=== PATIENT | male | born 1945 | race Two or more races ===

== ENCOUNTER 2017-12-01 18:29 | Emergency (ER) | payer OTHER ==
[~2017-12-01] VITALS: Ht 172.7 cm; Wt 90.7 kg
[2017-12-01] MEDS ORDERED: KETOROLAC TROMETH 60MG/2ML VIAL IM ONE (19:45)
[2017-12-01] MEDS ORDERED: HYDROcodone-ACET 5/325MG TAB PO ONE (19:45)
[2017-12-01] MEDS ORDERED: KETOROLAC TROMETH 30 MG/ML 1ML VIAL IV ONE (20:00)
[2017-12-01 23:47] VITALS: BP 142/79
== END 2017-12-01 23:57 | disposition home or self-care (01) ==
LOC: ER 18:40
DX: S52.591A Other fractures of lower end of right radius, initial encounter for closed fracture (principal); S20.211A Contusion of right front wall of thorax, initial encounter; I10 Essential (primary) hypertension; E78.5 Hyperlipidemia, unspecified; W01.198A Fall on same level from slipping, tripping and stumbling with subsequent striking against other object, initial encounter; Y93.89 Activity, other specified; Y99.8 Other external cause status; Y92.096 Garden or yard of other non-institutional residence as the place of occurrence of the external cause
CPT/HCPCS: 29125; 71111; 73090; 96374; 99284; J1885

== ENCOUNTER 2019-01-27 22:44 | Emergency (ER) | payer OTHER ==
[~2019-01-27] VITALS: Ht 172.7 cm; Wt 93.4 kg
[2019-01-28 00:42] LABS: Basophils # (auto) 0 uL; Basophils % (auto) 0.2 % (0.0-2.0); Eosinophils # (auto) 0.1 uL; Eosinophils % (auto) 0.6 % (0.0-7.0); Hematocrit 38.7 % (41.0-53.0); Hemoglobin 13.4 g/dL (13.5-17.5); Lymphocytes # (auto) 2.4 uL; Lymphocytes % (auto) 17.4 % (10.0-50.0); Mean Corpuscular Hemoglobin 29.9 pg (28.0-32.0); Mean Corpuscular Hgb Conc. 34.6 g/dL (32.0-36.0); Mean Corpuscular Volume 86.5 fL (80.0-100.0); Monocytes # (auto) 0.8 uL; Monocytes % (auto) 5.6 % (0.0-12.0); Neutrophils # (auto) 10.6 uL; Neutrophils % (auto) 76.2 % (37.0-80.0); Platelet Count (auto) 280 10^3/uL (140-450); Red Blood Cells 4.48 10^6/uL (4.5-5.90); Red Cell Distribution Width 13.9 % (11.8-14.3); White Blood Cell 13.9 10^3/uL (4.4-10.8)
[2019-01-28 00:59] LABS: Albumin 3.5 g/dL (3.4-5.0); BUN/Creatinine Ratio 24.6; Calcium 9.8 mg/dL (8.5-10.1); Potassium 4.2 mmol/L (3.5-5.1)
[2019-01-28] MEDS ORDERED: MAGNESIUM CITRATE SOLUTION 300 ML BTL PO ONE (01:00)
[2019-01-28 01:01] LABS: Bilirubin, Total 0.5 mg/dL (0.2-1.0); Total Protein 7.3 g/dL (6.4-8.2)
[2019-01-28 03:00] VITALS: BP 171/98
== END 2019-01-28 03:54 | disposition home or self-care (01) ==
LOC: ER 22:46
DX: K59.00 Constipation, unspecified (principal); D72.829 Elevated white blood cell count, unspecified; N28.9 Disorder of kidney and ureter, unspecified; N13.30 Unspecified hydronephrosis; Z85.46 Personal history of malignant neoplasm of prostate
CPT/HCPCS: 36415; 51702; 74176; 80053; 85025

== ENCOUNTER 2022-03-28 08:16 | Day surgery (SDC) | payer OTHER ==
[~2022-03-28] VITALS: Ht 177.8 cm; Wt 81.6 kg
[~2022-03-28 08:16] MED LIST: AMLO-496 PO; DOXY-286 PO; FENO54TA4 PO; FURO40TA4 PO; [UNRECOGNIZED DRUG - CODE] XX
[2022-03-28] MEDS ORDERED: ceFAZolin 1GM/50ML 100 ML IV ONE (09:00)
[2022-03-28] MEDS ORDERED: fentaNYL CITRATE 100 MCG/2 ML VL ONE (09:27)
[2022-03-28] MEDS ORDERED: DexAMETHasone SOD PHOS 10MG/1ML VIAL INJ ONE (09:27)
[2022-03-28] MEDS ORDERED: PROPOFOL 10 MG/ML 20 ML IV ONE (09:27)
[2022-03-28] MEDS ORDERED: SODIUM CHLORIDE LOCK 10 ML ONE (09:27)
[2022-03-28] MEDS ORDERED: MIDAZOLAM HCL 2MG/2ML 2ml VIAL (1mg/ml) ONE (09:27)
[2022-03-28] MEDS ORDERED: ONDANSETRON HCL 4 MG/2 ML VIAL ONE (09:27)
[2022-03-28] MEDS ORDERED: LIDOCAINE 1% (LOCAL ANESTH.) PF 5ml SDV ONE ×2 (10:10→10:20)
[2022-03-28] MEDS ORDERED: BUPIVACAINE 0.5% P/F INJ 10 ML VIAL ONE (10:11)
[2022-03-28] MEDS ORDERED: DexAMETHasone SOD PHOS 4 MG/1ML SDV INJ ONE (10:11)
[2022-03-28] MEDS ORDERED: HYDROmorphone HCL 2 MG/ML VL/or syr IV PRN ×2 (10:15)
[2022-03-28] MEDS ORDERED: METOCLOPRAMIDE HCL 5MG/ml INJ 2ml VIAL IV PRN (10:15)
[2022-03-28] MEDS ORDERED: MORPHINE SULFATE 4 MG/ML SYR/VIAL IV PRN (10:15)
[2022-03-28 11:45] VITALS: BP 167/78
== END 2022-03-28 12:07 | disposition home or self-care (01) ==
LOC: SUR 08:16
PROVIDERS: ATTEND Podiatrist Foot & Ankle Surgery
DX: M20.41 Other hammer toe(s) (acquired), right foot (principal); M77.41 Metatarsalgia, right foot; I10 Essential (primary) hypertension; Z79.899 Other long term (current) drug therapy; Z20.822 Contact with and (suspected) exposure to COVID-19
CPT/HCPCS: 28110; 28285; 73620; C1713; J0690; J1100; J2250; J2405; J2704; J3010; J3490; U0003